=== PATIENT | female | born 1990 | race Caucasian/White ===

== ENCOUNTER 2019-08-13 14:59 | Emergency (ER) | payer MEDICAID ==
[~2019-08-13] VITALS: Ht 170.2 cm; Wt 68.0 kg
[~2019-08-13 14:59] MED LIST: PROMCRY
[2019-08-13 15:41] LABS: Basophils # (auto) 0 uL; Basophils % (auto) 0.5 % (0.0-2.0); Eosinophils # (auto) 0 uL; Eosinophils % (auto) 0.3 % (0.0-7.0); Hematocrit 46.8 % (36.0-46.0); Hemoglobin 15.8 g/dL (12.2-16.2); Lymphocytes # (auto) 2.1 uL; Lymphocytes % (auto) 22.3 % (10.0-50.0); Mean Corpuscular Hemoglobin 30.6 pg (28.0-32.0); Mean Corpuscular Hgb Conc. 33.8 g/dL (32.0-36.0); Mean Corpuscular Volume 90.5 fL (80.0-100.0); Monocytes # (auto) 0.6 uL; Monocytes % (auto) 6.4 % (0.0-12.0); Neutrophils # (auto) 6.7 uL; Neutrophils % (auto) 70.5 % (37.0-80.0); Nucleated Red Blood Cells % 0.1 %; Platelet Count (auto) 263 10^3/uL (140-450); Red Blood Cells 5.17 10^6/uL (4.0-5.20); Red Cell Distribution Width 13.6 % (11.8-14.3); White Blood Cell 9.5 10^3/uL (4.4-10.8)
[2019-08-13 16:01] LABS: Albumin 4.8 g/dL (3.4-5.0); BUN/Creatinine Ratio 17.8; Calcium 9.4 mg/dL (8.5-10.1); Potassium 4.1 mmol/L (3.5-5.1)
[2019-08-13 16:04] LABS: Bilirubin, Total 0.7 mg/dL (0.2-1.0); Total Protein 8.4 g/dL (6.4-8.2)
[2019-08-13 16:12] LABS: Urine Bacteria NONE SEEN /hpf (None Seen); Urine Blood 3+ /uL (Negative); Urine WBC 15 /hpf (0 - 5)
[2019-08-14 04:50] VITALS: BP 107/65
== END 2019-08-14 05:12 | disposition home or self-care (01) ==
LOC: ER 14:59 → EDBD 14:59 → ER 08-14 05:12
DX: N93.8 Other specified abnormal uterine and vaginal bleeding (principal); Z32.02 Encounter for pregnancy test, result negative
CPT/HCPCS: 36415; 76856; 80053; 81001; 81025; 85025